=== PATIENT | female | born 1980 | race Caucasian/White ===

== ENCOUNTER 2023-02-08 21:19 | Inpatient (IN) | payer OTHER, SELFPAY ==
[2023-02-08 21:30] VITALS: BP 146/94; PULSE 96; RESP 18; TEMP 37.1; O2SAT 97; BMI 31.0
[2023-02-08 21:58] LABS: MANUAL DIFF FLAG NO
[2023-02-08 22:03] LABS: Basophils Percent Auto 0.3 % (0-2); Eosinophils Percent Auto 0.1 % (0-4); Hematocrit 38.5 % (37.0-47.0); Hemoglobin 13.4 g/dl (12.0-16.0); Imm Gran Abs Auto 0.02 X10*3/uL (0.00-0.03); Imm Gran Pct Auto 0.3 % (0.0-0.4); Lymphocytes Absolute Auto 1.1 X10*3/uL (1.2-4.9); Lymphocytes Percent Auto 15.1 % (20-40); Mean Corpuscular HGB Conc 34.8 g/dl (31.0-35.0); Mean Corpuscular Hemoglobin 30.3 pg (27.0-33.0); Mean Corpuscular Volume 87.1 fL (80.0-98.0); Mean Platelet Volume 9.4 fL (9.4-12.3); Monocytes Absolute Auto 0.5 X10*3/uL (0.1-1.2); Monocytes Percent Auto 6.3 % (2-11); Neutrophils Absolute Auto 5.7 x10*3/uL (2.0-8.3); Neutrophils Percent Auto 77.9 % (45-73); Platelet Count 261 X10*3/uL (160-400); Red Blood Count 4.42 X10*6/uL (4.20-5.50); Red Cell Distribution Width 13.1 % (11.0-16.0); White Blood Count 7.3 X10*3/uL (4.8-10.8)
[2023-02-08 22:03] LABS: Appearance Urine Clear; Color Urine Yellow; Glucose Urine UA Negative (Negative); Leukocyte Esterase Urine Negative (Negative); Nitrite Urine Negative (Negative); Specific Gravity - Urine <= 1.005 (1.005-1.025); Urine Blood Negative (Negative); Urine Ketones 15 mg/dL (Negative); Urine Pregnancy NEGATIVE (NEGATIVE); Urine Protein Negative (Neg-Trace)
[2023-02-08 22:04] LABS: UPreg QC Valid YES
[2023-02-08 22:11] LABS: Amphetamine Screen Urine Not Detected (Not Detect); Barbiturates, Urine Not Detected (Not Detect); Benzodiazepines Screen Urine Not Detected (Not Detect); Cannabinoid Screen Urine POSITIVE (Not Detect); Cocaine Screen Urine Not Detected (Not Detect); Fentanyl, urine Not Detected (Not Detect); IDNOW Serial# 9DB6401D; Opiate Screen Urine Not Detected (Not Detect); Phencyclidine Screen Urine Not Detected (Not Detect)
[2023-02-08 22:12] LABS: COVID-19 Test Negative (Negative)
--- NOTE | 2023-02-08 22:16 | PC.NURSE ---
pt reprots does not feel safe at home, please screen visitors and ask if patient if ok prior to bringing back to visit.
[2023-02-08 22:19] LABS: Alanine Aminotransferase 16 U/L (0-31); Albumin Level 4.4 g/dL (3.5-5.0); Alkaline Phosphatase 44 U/L (39-117); Anion Gap 15 (12-20); Aspartate Amino Transferase 22 U/L (5-31); Bilirubin Total 0.3 mg/dL (0.0-1.0); Blood Urea Nitrogen 11 mg/dL (9-16); Calcium 9.4 mg/dL (8.4-10.2); Carbon Dioxide 21 mmol/L (22-29); Chloride 106 mmol/L (96-108); Creatinine Clr Calc Pharmacy 92.7; Estimated Glomerular Filt Rate > 60; Ethanol < 10 mg/dL; Glucose Random 112 mg/dL (60-115); Potassium 3.4 mmol/L (3.3-5.1); Sodium 139 mmol/L (135-145); Total Protein 7.2 g/dL (6.5-8.0)
--- NOTE | 2023-02-08 22:24 | PC.NURSE ---
security searched and placed belonings in pod closet
--- NOTE | 2023-02-08 22:41 | ED_ITS ---
HPI - Psych General Chief Complaint: Psychiatric Symptoms Stated Complaint: stopped taking physch meds/suicidal thoughts Time Seen by Provider: 02/08/23 22:35 Source: patient Mode of arrival: ambulatory Limitations: no limitations History of Present Illness HPI Narrative: Patient comes to the emergency room stating that she believes she is having a psychotic breakdown. Patient states that she was doing very well in her psychiatric medications, took herself off 3 months ago because she was doing well. Today, the patient states that she was smoking marijuana, then she lost touch with reality , patient realized that she was having a psychotic breakdown. Patient states that she is sure that the marijuana that she was smoking was not laced with any other drugs. Patient denies suicidal or homicidal ideation. Patient looking for help before her psychiatric episode is worse, vague suicidal ideation no plan Related Data Allergies Allergy/AdvReac Type Severity Reaction Status Date / Time doxycycline Allergy Anaphylaxis Verified 02/08/23 21:38 Review of Systems 2 Review of Systems: Constitutional : No Weight loss, No Fever, No Chills, No Night Sweats, No Fatigue, No Malaise ENT/Mouth : No Hearing loss, No Ear Pain, No Nasal Congestion, No Sinus Pain, No Hoarseness, No sore throat, No Rhinorrhea, No Swallowing Difficulty Eyes: No Eye Pain, No Swelling, No Redness, No Foreign Body, No Discharge, No Vision Changes Cardiovascular : No Chest Pain, No SOB, No Dyspnea on Exertion, No Orthopnea, No Edema, No Palpitations Respiratory : No Cough, No Sputum, No Wheezing, No Smoke Exposure, No Dyspnea Gastrointestinal : No Nausea, No Vomiting, No Diarrhea, No Constipation, No abdominal Pain, No Hematochezia, No Melena Genitourinary : no irregular bleeding, No Dysuria, No Urinary Frequency, No Hematuria, No Urinary Incontinence, No Urgency, No Flank Pain, No Urinary Flow Changes, No Hesitancy Musculoskeletal : No joint pain, No Myalgias, No Joint Swelling Skin : No Skin Lesions, No rash Neuro : No Weakness, No Numbness, No Paresthesias, No Loss of Consciousness, No Dizziness, No Headache Psych : No Anxiety/Panic, vague suicidal ideation without plan, patient states that she feels that she is losing touch with reality Heme/Lymph: No Bruising, No Bleeding,No Lymphadenopathy Endocrine : No Polyuria, No Polydipsia, No Temperature Intolerance PMFSH Social History Social History Advance Directives: No Advance Directives Information Provided: No Patient : No Physical Exam 2 Vital Signs: Vital Signs: Last Vital Signs Temp 98.7 F 02/08/23 21:30 Pulse 96 02/08/23 21:30 Resp 18 02/08/23 21:30 BP 146/94 H 02/08/23 21:30 Pulse Ox 97 02/08/23 21:30 O2 Del Method Room Air 02/08/23 21:30 BMI result Body Mass Index 31.0 Const: Other: Appearance: Alert. Oriented X3. No acute distress. Eyes: Pupils equal, round and reactive to light. ENT: Pharynx normal. Neck: Normal inspection. Neck supple. No lymph nodes noted. No crepitus CVS: Normal heart rate and rhythm. Pulses normal. Normal S1 and S2 Respiratory: No respiratory distress. Breath sounds normal. No Wheezing. No rales Abdomen: Soft and nontender. No rigidity. No distention. Skin: Skin warm and dry. Normal skin color. Normal skin turgor. Extremities: No lower extremity edema. No Lacerations. No Rash Neuro: Oriented X 3. No motor deficit. No sensory deficit. Moving all extremities. No slurred speech. CN 2 through 12 grossly intact Psych: calm, cooperative, normal affect, coherent Medical Decision Making Medical Decision Making MDM Narrative: -my interpretation of labs: Normal hematology, normal chemistry, negative UTI, urine toxicology positive for marijuana, negative ETOH -patient having, states she is hearing voices to at this time. Patient given p.o. Haldol Benadryl and Ativan. Patient requested medications, this is not a medical restrain, patient agreeable to take them. -patient is here voluntarily, seeking help, not wanting to leave, sectioned to the indicated at this time -care team consult pending -physician observation started at 22:52 Differential Diagnosis Differential Diagnoses: The differential diagnosis associated with the presentation includes (Depression, polysubstance abuse, schizophrenia, psychosis) Admission/Observation Consideration of admission/observation: Escalation of care including admission/observation considered (Patient waiting to be seen by the care team to determine disposition, patient on physician observation) Lab Data [facility] Lab Attestation statement: I reviewed the patient's lab results. 02/08/23 21:51 02/08/23 21:50 Labs: Lab Results 02/08/23 02/08/23 Range/Units 21:50 21:51 WBC 7.3 (4.8-10.8) X10*3/uL RBC 4.42 (4.20-5.50) X10*6/uL Hgb 13.4 (12.0-16.0) g/dl Hct 38.5 (37.0-47.0) % MCV 87.1 (80.0-98.0) fL MCH 30.3 (27.0-33.0) pg MCHC 34.8 (31.0-35.0) g/dl RDW 13.1 (11.0-16.0) % Plt Count 261 (160-400) X10*3/uL MPV 9.4 (9.4-12.3) fL Immature Gran % (Auto) 0.3 (0.0-0.4) % Neut % (Auto) 77.9 H (45-73) % Lymph % (Auto) 15.1 L (20-40) % [place] % (Auto) 6.3 (2-11) % Eos % (Auto) 0.1 (0-4) % Baso % (Auto) 0.3 (0-2) % Lymph # (Auto) 1.1 L (1.2-4.9) X10*3/uL [place] # (Auto) 0.5 (0.1-1.2) X10*3/uL Eos # (Auto) 0.0 (0.0-0.4) X10*3/uL Baso # (Auto) 0.0 (0.0-0.2) X10*3/uL Abs Immat Gran (auto) 0.02 (0.00-0.03) X10*3/uL Absolute Neuts (auto) 5.7 (2.0-8.3) x10*3/uL Absolute Nucleated RBC 0.000 (0.0-0.012) X10*3/uL Nucleated RBC % (auto) 0.0 (0.0-0.2) /100WBC Sodium 139 (135-145) mmol/L Potassium 3.4 (3.3-5.1) mmol/L Chloride 106 (96-108) mmol/L Carbon Dioxide 21 L (22-29) mmol/L Anion Gap 15 (12-20) BUN 11 (9-16) mg/dL Creatinine 0.81 (0.5-1.4) mg/dL Estim Creat Clear Calc 92.7 Estimated GFR > 60 Random Glucose 112 (60-115) mg/dL Calcium 9.4 (8.4-10.2) mg/dL Total Bilirubin 0.3 (0.0-1.0) mg/dL AST 22 (5-31) U/L ALT 16 (0-31) U/L Alkaline Phosphatase 44 (39-117) U/L Total Protein 7.2 (6.5-8.0) g/dL Albumin 4.4 (3.5-5.0) g/dL Urine Color Yellow Urine Appearance Clear Urine pH 6.0 (5.0-9.0) Ur Specific [place] <= 1.005 (1.005-1.025) Urine Protein Negative (Neg-Trace) mg/dL Urine Glucose (UA) Negative (Negative) mg/dL Urine Ketones 15 (Negative) mg/dL Urine Blood Negative (Negative) Urine Nitrite Negative (Negative) Ur Leukocyte Esterase Negative (Negative) Urine Test NEGATIVE (NEGATIVE) Urine Opiates Screen Not Detected (Not Detect) Urine Fentanyl Screen Not Detected (Not Detect) Ur Barbiturates Screen Not Detected (Not Detect) Ur Phencyclidine Scrn Not Detected (Not Detect) Ur Amphetamines Screen Not Detected (Not Detect) U Benzodiazepines Scrn Not Detected (Not Detect) Urine Cocaine Screen Not Detected (Not Detect) U Marijuana (THC) Screen POSITIVE H (Not Detect) Ethyl Alcohol < 10 mg/dL COVID-19 (AGUSTIN) Negative (Negative) COVID-19 Clin Com See Note Discharge Plan Discharge Clinical Impression: Acute psychosis, Auditory hallucinations Patient Disposition: Still a Patient Interventions: [place]-Suicide Risk Severity Scale Last Done: 02/08/23 22:12
--- NOTE | 2023-02-08 22:45 | PC.NURSE ---
pt sts that she is feeling anxious/ hearing voices, requests medicateion, MD wright notified via [email or web address].
[2023-02-08] MEDS: HaloperidoL 5 MG TABLET PO (22:53)
[2023-02-08] MEDS: diphenhydrAMINE HCL 25 MG CAPSULE 50 MG PO (22:53)
[2023-02-08] MEDS: LORazepam 1 MG TABLET 2 MG PO (22:53)
--- NOTE | 2023-02-08 23:14 | PC.NURSE ---
med rec complete
[2023-02-09 06:13] VITALS: BP 119/67; PULSE 69; RESP 16; TEMP 37; O2SAT 95
[2023-02-09] MEDS: LORazepam 1 MG TABLET PO (13:57)
[2023-02-09] MEDS: Nicotine 14 MG PATCH.TD24 TRANSDERMA (17:05)
[2023-02-09 17:08] VITALS: RESP 16
--- NOTE | 2023-02-09 17:10 | PC.NURSE ---
Shannon moved from the main ED to the POD. Pleasant and cooperative. Req/Rec Nicotine patch. Currently resting in her room.
--- NOTE | 2023-02-09 19:38 | PC.NURSE ---
patient appears to remain at rest at present respirations are even and unlabored patient appears in no distress.
[2023-02-09 21:18] VITALS: BP 112/74; O2SAT 96
[2023-02-09] MEDS: Sertraline HCL 100 MG TABLET 150 MG PO (21:22)
[2023-02-09] MEDS: OLANZapine 10 MG TABLET PO (21:22)
[2023-02-09] MEDS: traZODone HCL 100 MG TABLET 200 MG PO (21:22)
[2023-02-09] MEDS: cloNIDine HCL 0.1 MG TABLET PO (21:24)
--- NOTE | 2023-02-09 21:29 | PHA.MEDREC ---
Pharmacy Consult ? Medication Reconciliation Pharmacy has reviewed the medication reconciliation completed by nursing. Patient on sertraline 150 mg instead of 100 mg. Vonda Be, MehdiD
--- NOTE | 2023-02-10 | ECG_ITS ---
Test Reason : qt interval Blood Pressure : / mmHG Vent. Rate : 074 BPM Atrial Rate : 074 BPM P-R Int : 172 ms QRS Dur : 076 ms QT Int : 394 ms P-R-T Axes : 057 -07 010 degrees QTc Int : 437 ms Normal sinus rhythm Normal ECG No previous ECGs available Referred By: Sherlyn Mishra Electronically Signed By:ROBERT MCNEIL MD
[2023-02-10 08:21] LABS: COVID-19 Test Negative (Negative); IDNOW Serial# 08D9AD1C
[2023-02-10 09:24] VITALS: BP 111/64; PULSE 54; TEMP 36.8; O2SAT 97
--- NOTE | 2023-02-10 11:13 | PC.NURSE ---
pt given clean clothes, took shower. alert, calm, cooperative.
--- NOTE | 2023-02-10 11:28 | PC.NURSE ---
pt tearful, requesting nicotine replacement and something for anxiety. crying. sad. no si. md giang informed.
[2023-02-10] MEDS: Nicotine 21 MG PATCH.TD24 TRANSDERMA (11:49)
[2023-02-10] MEDS: LORazepam 1 MG TABLET PO (11:49)
--- NOTE | 2023-02-10 11:52 | PC.NURSE ---
given nicotine patch and ativan also for anxiety per request.
--- NOTE | 2023-02-10 12:00 | PC.NURSE ---
pt was anxious/tearful/sad and asked for ativan/nicotine patch. spoke w md giang. ordered. given and pt resting in room
--- NOTE | 2023-02-10 13:04 | PC.NURSE ---
report given to fracisco on phone. will call back when orders are final and pt can go up
--- NOTE | 2023-02-10 14:20 | PC.NURSE ---
resting in room. ate lunch. no distress
[2023-02-10 15:01] VITALS: BP 111/73; PULSE 82; RESP 18; TEMP 37.1; O2SAT 97
--- NOTE | 2023-02-10 15:09 | PC.NURSE ---
sent upstairs by lianna weathers.
[2023-02-10] MEDS: hydrOXYzine HCL 25 MG TABLET PO ×2 (15:49→20:54)
[2023-02-10 18:00] VITALS: BP 116/78; PULSE 78; RESP 17; TEMP 36.7; O2SAT 98
[2023-02-10 19:02] VITALS: BMI 30.3
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
[2023-02-10] MEDS: cloNIDine HCL 0.1 MG TABLET PO (20:55)
[2023-02-10] MEDS: traZODone HCL 100 MG TABLET 200 MG PO (20:55)
[2023-02-10] MEDS: OLANZapine 10 MG TABLET PO (20:55)
[2023-02-11] MEDS: hydrOXYzine HCL 25 MG TABLET PO ×2 (09:28→20:41)
[2023-02-11] MEDS: Nicotine 21 MG PATCH.TD24 TRANSDERMA (09:29)
[2023-02-11 10:03] VITALS: BP 100/58; PULSE 85; RESP 18; TEMP 36.9; O2SAT 96
[2023-02-11 10:13] LABS: Estimated Average Glucose 85 mg/dL; Hemoglobin A1c % 4.6 % (<6.0)
[2023-02-11 10:22] LABS: Cholesterol 148 mg/dL (<200); HDL Cholesterol 45 mg/dL (>40); LDL Cholesterol Calculated 81 mg/dL (<100); Triglycerides 111 mg/dL (<150)
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
[2023-02-11] MEDS: Nicotine Polacrilex 2 MG GUM 4 MG BUCCAL (14:21)
[2023-02-11] MEDS: OLANZapine 5 MG TABLET PO ×2 (14:21→18:55)
[2023-02-11 18:00] VITALS: BP 126/58; PULSE 68; RESP 16; TEMP 37; O2SAT 98
--- NOTE | 2023-02-11 18:21 | P.CONHOSP_ITS ---
History of Present Illness Data of Consult Service Date: 02/11/23 Requesting physician: Nette Myles Primary Care Provider: Camron Parikh MD HPI Reason for consult: nasal congestion, scabbing 42-year-old female without any significant past medical history admitted to Psychiatry with consult placed to hospitalist service for evaluation of nasal congestion/edema/scabbing ongoing for about 1 week. The patient denies any inhaled drug use but states every time she blows her nose there is bloody drainage. No overt epistaxis. She states her right nostril feels swollen and blocked. There is mild tenderness/pressure over the right maxillary and frontal sinus. No fevers. No sore throat, cough, sob Review of Systems 2 Review of Systems: Yes all other systems are reviewed and are negative [facility] Medical History No pertinent past medical history Social History Household Members: Unknown / Unable to assess Housing: Apartment Do you presently have visiting nurse or other home services: No Patient Tobacco Use Status: Current everyday Tobacco user Smoked in Last 30 Days: Yes e-Cigarette/Vaping Use: Currently Using Frequency of e-Cigarette/Vaping Use: A lot Patient Interested in Nicotine Replacement: Yes Second Hand Smoke Exposure: No Use of substances other than those prescribed or required for medical reasons: Yes Substance Use Type: Marijuana Substance Use Frequency: Occasionally Last Used Substance: Days (ago) Currently Displaying Signs/Symptoms of Drug Intoxication Withdrawal: No Any prior treatment program specific to substance use: No Have you been hit, kicked, punched, or otherwise hurt by someone within the past year? If so, by whom?: No Do you feel safe in your current relationship?: No Is there a partner from a previous relationship who is making you feel unsafe now?: No Are you made to feel afraid or neglected: No Spiritual Healthcare Practices: None Reported Advance Directives: No Advance Directives Information Provided: No Healthcare Proxy: No Guardian: No Do you have thoughts of harming others: None Do you have a plan to hurt others: No Plan Recently lost weight without trying: No How much weight loss: Not applicable Eating poorly because of decreased appetite: No Nutrition screen score: 0 Nutrition Risks: No Nutritional Risk Patient : No : No Poor oral hygiene: No Meds Allergies Allergy/AdvReac Type Severity Reaction Status Date / Time doxycycline Allergy Anaphylaxis Verified 02/08/23 21:38 Active Medications: Current Medications Acetaminophen (Acetaminophen 325 Mg Tablet) 650 mg PO Q6H PRN PRN Reason: Headache/Pain Mild Scale (1-3) Al Hydroxide/Mg Hydroxide (Magnesium Hydrox/Alum Hydrox 30 Ml Oral.Susp) 30 ml PO Q6H PRN PRN Reason: Heartburn/Nausea Amphetamine/Dextroamphetamine (Amphetamine Mixed Salts 20 Mg Tablet) 20 mg PO DAILY@0900,1400 TOMEKA Bisacodyl (Bisacodyl 5 Mg Tablet.Dr) 10 mg PO DAILY PRN PRN Reason: Constipation Docusate Sodium (Docusate Sodium 100 Mg Capsule) 100 mg PO BID TOMEKA Hydroxyzine HCl (Hydroxyzine Hcl 25 Mg Tablet) 25 mg PO Q6H PRN PRN Reason: Anxiety Last Admin: 02/11/23 09:28 Dose: 25 mg Magnesium Hydroxide (Milk Of Magnesia 30 Ml Oral.Susp) 30 ml PO DAILY PRN PRN Reason: Constipation Nicotine (Nicotine 21 Mg Patch.Td24) 21 mg TRANSDERMA DAILY PRN PRN Reason: smoking cessation Last Admin: 02/11/23 09:29 Dose: 21 mg Nicotine Polacrilex (Nicotine Polacrilex 2 Mg Gum) 4 mg BUCCAL Q2H PRN PRN Reason: Nicotine Cravings Last Admin: 02/11/23 14:21 Dose: 4 mg Olanzapine (Olanzapine 10 Mg Tablet) 10 mg PO BEDTIME TOMEKA Last Admin: 02/10/23 20:55 Dose: 10 mg Olanzapine (Olanzapine 5 Mg Tablet) 5 mg PO TID PRN PRN Reason: agitation Last Admin: 02/11/23 14:21 Dose: 5 mg Polyethylene Glycol (Polyethylene Glycol 3350 17 Gm Powd.Pack) 17 gm PO DAILY PRN PRN Reason: Constipation Prazosin HCl (Prazosin Hcl 1 Mg Capsule) 1 mg PO BEDTIME TOMEKA; Protocol Sertraline HCl (Sertraline Hcl 50 Mg Tablet) 50 mg PO BEDTIME TOMEKA Trazodone HCl (Trazodone Hcl 100 Mg Tablet) 200 mg PO BEDTIME PRN PRN Reason: Insomnia Last Admin: 02/10/23 20:55 Dose: 200 mg Trazodone HCl (Trazodone Hcl 50 Mg Tablet) 50 mg PO BEDTIME MRX1 PRN PRN Reason: Insomnia Home Medications Medication Instructions Recorded Confirmed Last Taken Type clonidine HCl 0.1 mg tablet 0.1 mg PO BEDTIME 02/08/23 02/09/23 Unknown History olanzapine 10 mg tablet 10 mg PO BEDTIME 02/08/23 02/08/23 Unknown History sertraline 100 mg tablet (Zoloft) 150 mg PO BEDTIME 02/08/23 02/09/23 Unknown History trazodone 100 mg tablet 200 mg PO BEDTIME PRN Insomnia 02/08/23 02/08/23 Unknown History Physical Exam 2 Vital Signs and Narrative: Vital Signs: Last Vital Signs Temp 98.5 F 02/11/23 10:03 Pulse 85 02/11/23 10:03 Resp 18 02/11/23 10:03 BP 100/58 L 02/11/23 10:03 Pulse Ox 96 02/11/23 10:03 O2 Del Method Room Air 02/11/23 10:03 BMI result Body Mass Index 30.3 Constitutional - Awake and Alert, No apparent distress Eyes - PERRLA, EOMI Nose - Nares patent, mucosa pale/dry. Slight scabbing over kiesselbach plexus. No significant ttp over maxillary or frontal sinus Cardiovascular - S1S2, No edema Respiratory - Normal lung expansion, Normal respiratory effort, No respiratory distress Skin - Warm/Dry Neurological - Alert & oriented x3 Psychological - Appropriate affect Results Labs 02/08/23 21:51 02/08/23 21:50 Labs: Laboratory Results - last 24 hr 02/11/23 09:15 Estimat Average Glucose 85 Hemoglobin A1c % 4.6 Triglycerides 111 Cholesterol 148 LDL Cholesterol, Calc 81 HDL Cholesterol 45 Assessment and Plan (1) Nasal congestion: Status: Acute Plan 42-year-old female without any significant past medical history admitted to Psychiatry with consult placed to hospitalist service for evaluation of nasal congestion/edema/scabbing ongoing for about 1 week. Pt with nasal congestion/nasal dryness likely secondary to low humidity which is causes slight bleeding when blowing her nose. Recommend using flonase only once daily to help with any edema/congestion but recommended frequent use of saline nasal spray. She can use claritin prn. Can use petroleum jelly for dryness if needed. No antibiotics or further intervention indicated at this time. Thank you for allowing me to participate in this consult. Signing off at this time. Please do not hesitate to call for further questions or for any acute medical issues.
[2023-02-11] MEDS: Fluticasone Propionate Nasal 16 GM SPRAY 1 SPRAY NOSTRIL-B (18:55)
[2023-02-11] MEDS: Sodium Chloride 0.65 % Nasal 44 ML SPRBTL 1 SPRAY NOSTRIL-B (18:55)
[2023-02-11] MEDS: OLANZapine 10 MG TABLET PO (20:41)
[2023-02-11] MEDS: Prazosin HCL 1 MG CAPSULE PO (20:41)
[2023-02-11] MEDS: Docusate Sodium 100 MG CAPSULE PO (20:41)
[2023-02-11] MEDS: traZODone HCL 100 MG TABLET 200 MG PO (20:44)
[2023-02-12 07:00] VITALS: BMI 30.6
[2023-02-12] MEDS: Amphetamine Mixed Salts 20 MG TABLET PO ×2 (08:44→14:28)
[2023-02-12] MEDS: Docusate Sodium 100 MG CAPSULE PO ×2 (08:44→21:33)
[2023-02-12] MEDS: Fluticasone Propionate Nasal 16 GM SPRAY 1 SPRAY NOSTRIL-B (08:44)
[2023-02-12] MEDS: OLANZapine 5 MG TABLET PO ×2 (08:47→20:18)
[2023-02-12] MEDS: Nicotine 21 MG PATCH.TD24 TRANSDERMA (08:47)
[2023-02-12] MEDS: Sodium Chloride 0.65 % Nasal 44 ML SPRBTL 1 SPRAY NOSTRIL-B ×2 (08:47→14:28)
[2023-02-12 09:30] VITALS: BP 137/75; PULSE 72; RESP 16; TEMP 36.9; O2SAT 97
--- NOTE | 2023-02-12 15:07 | HO.PSYCHPN ---
Subjective Subjective Date of Service: 02/12/23 Reason For Visit: Psychosis Interim History: Tolerating medication retitration. Planning discharge 02/13. Denies SI, HI, AH, VH Medication Compliance: Yes Review of Systems Medical Review of Systems: unchanged Review of Systems Review of Systems Yes all other systems are reviewed and are negative Mental Status Exam Mental Status Exam Patient Appearance: Appropriate Patient Orientation: Person, Place, Time and Situation Level of Consciousness: Alert Patient Behavior: Appropriate, Talkative and Good Eye Contact Mood Description: Depressed Affect Description: Flat Patient Cognition Impaired: No Ability to Follow Directions: Good Speech Pattern: Spontaneous Speech Memory Description: Intact Hallucinations: None Delusions: Not Present Perceptual Disturbances: Depersonalization and Derealization Thought Process: Intact and Goal Oriented Thought Content: positive for Intact and positive for Goal Oriented Depressive Symptoms: Low Self Esteem Judgement: Good Diagnostics Vital Signs (24Hr): Vital Signs - 24 hr 02/11/23 18:00 02/12/23 09:30 Temperature 98.6 F 98.4 F Pulse Rate 68 72 Respiratory Rate 16 16 Blood Pressure 126/58 L 137/75 Pulse Oximetry 98 97 Oxygen Delivery Method Room Air Room Air BMI result Body Mass Index 30.6 Labs 02/08/23 21:51 02/08/23 21:50 Labs: Laboratory Results - last 48 hr 02/11/23 09:15 Estimat Average Glucose 85 Hemoglobin A1c % 4.6 Triglycerides 111 Cholesterol 148 LDL Cholesterol, Calc 81 HDL Cholesterol 45 Medications Medications Current Medications Acetaminophen (Acetaminophen 325 Mg Tablet) 650 mg PO Q6H PRN PRN Reason: Headache/Pain Mild Scale (1-3) Al Hydroxide/Mg Hydroxide (Magnesium Hydrox/Alum Hydrox 30 Ml Oral.Susp) 30 ml PO Q6H PRN PRN Reason: Heartburn/Nausea Amphetamine/Dextroamphetamine (Amphetamine Mixed Salts 20 Mg Tablet) 20 mg PO DAILY@0900,1400 [facility] Last Admin: 02/12/23 14:28 Dose: 20 mg Bisacodyl (Bisacodyl 5 Mg Tablet.Dr) 10 mg PO DAILY PRN PRN Reason: Constipation Docusate Sodium (Docusate Sodium 100 Mg Capsule) 100 mg PO BID [facility] Last Admin: 02/12/23 08:44 Dose: 100 mg Fluticasone Propionate (Fluticasone Propionate Nasal 16 Gm [place]) 1 spray NOSTRIL-B DAILY [facility] Last Admin: 02/12/23 08:44 Dose: 1 spray Hydroxyzine HCl (Hydroxyzine Hcl 25 Mg Tablet) 25 mg PO Q6H PRN PRN Reason: Anxiety Last Admin: 02/11/23 20:41 Dose: 25 mg Loratadine (Loratadine 10 Mg Tablet) 10 mg PO DAILY PRN PRN Reason: congestion Magnesium Hydroxide (Milk Of Magnesia 30 Ml Oral.Susp) 30 ml PO DAILY PRN PRN Reason: Constipation Nicotine (Nicotine 21 Mg Patch.Td24) 21 mg TRANSDERMA DAILY PRN PRN Reason: smoking cessation Last Admin: 02/12/23 08:47 Dose: 21 mg Nicotine Polacrilex (Nicotine Polacrilex 2 Mg Gum) 4 mg BUCCAL Q2H PRN PRN Reason: Nicotine Cravings Last Admin: 02/11/23 14:21 Dose: 4 mg Olanzapine (Olanzapine 10 Mg Tablet) 10 mg PO BEDTIME [facility] Last Admin: 02/11/23 20:41 Dose: 10 mg Olanzapine (Olanzapine 5 Mg Tablet) 5 mg PO TID PRN PRN Reason: agitation Last Admin: 02/12/23 08:47 Dose: 5 mg Polyethylene Glycol (Polyethylene Glycol 3350 17 Gm Powd.Pack) 17 gm PO DAILY PRN PRN Reason: Constipation Prazosin HCl (Prazosin Hcl 1 Mg Capsule) 1 mg PO BEDTIME [place]OME[place]; Protocol Last Admin: 02/11/23 20:41 Dose: 1 mg Sertraline HCl (Sertraline Hcl 50 Mg Tablet) 50 mg PO BEDTIME [place] Sodium Chloride (Sodium Chloride 0.65 % Nasal 44 Ml Sprbtl) 1 spray NOSTRIL-B Q1H PRN PRN Reason: congestion/nose bleeds Last Admin: 02/12/23 14:28 Dose: 1 spray Trazodone HCl (Trazodone Hcl 100 Mg Tablet) 200 mg PO BEDTIME PRN PRN Reason: Insomnia Last Admin: 02/11/23 20:44 Dose: 200 mg Trazodone HCl (Trazodone Hcl 50 Mg Tablet) 50 mg PO BEDTIME MRX1 PRN PRN Reason: Insomnia Allergies Allergies Allergy/AdvReac Type Severity Reaction Status Date / Time doxycycline Allergy Anaphylaxis Verified 02/08/23 21:38 Assessment & Plan Assessment & Plan (1) Nasal congestion: Status: Resolved Code(s): R09.81 - Nasal congestion (2) Recurrent major depression: Status: Acute Code(s): F33.9 - Major depressive disorder, recurrent, unspecified Assessment and Plan: 02/12/23- Medications re-established without adverse response. Planning discharge for 02/13/23. (3) PTSD (post-traumatic stress disorder): Status: Acute Code(s): F43.10 - Post-traumatic stress disorder, unspecified Plan 42-year-old female without any significant past medical history admitted to Psychiatry with consult placed to hospitalist service for evaluation of nasal congestion/edema/scabbing ongoing for about 1 week. Pt with nasal congestion/nasal dryness likely secondary to low humidity which is causes slight bleeding when blowing her nose. Recommend using flonase only once daily to help with any edema/congestion but recommended frequent use of saline nasal spray. She can use claritin prn. Can use petroleum jelly for dryness if needed. No antibiotics or further intervention indicated at this time. Thank you for allowing me to participate in this consult. Signing off at this time. Please do not hesitate to call for further questions or for any acute medical issues. Informed Consent: understands Reason for continued inpatient stay Substantial Risk for: rapid decompensation Time Spent With Patient Time: Total time managing care of this patient today ____ minutes.
[2023-02-12 18:00] VITALS: BP 139/85; PULSE 90; RESP 18; TEMP 36.8; O2SAT 100
[2023-02-12] MEDS: Nicotine Polacrilex 2 MG GUM 4 MG BUCCAL (20:18)
[2023-02-12] MEDS: Prazosin HCL 1 MG CAPSULE PO (21:33)
[2023-02-12] MEDS: OLANZapine 10 MG TABLET PO (21:33)
[2023-02-12] MEDS: traZODone HCL 100 MG TABLET 200 MG PO (21:34)
[2023-02-12] MEDS: Sertraline HCL 50 MG TABLET PO (21:34)
[2023-02-12] MEDS: hydrOXYzine HCL 25 MG TABLET PO (21:35)
[2023-02-13] MEDS: Nicotine 21 MG PATCH.TD24 TRANSDERMA (08:20)
[2023-02-13] MEDS: Sodium Chloride 0.65 % Nasal 44 ML SPRBTL 1 SPRAY NOSTRIL-B (08:20)
[2023-02-13] MEDS: Fluticasone Propionate Nasal 16 GM SPRAY 1 SPRAY NOSTRIL-B (08:20)
[2023-02-13] MEDS: Docusate Sodium 100 MG CAPSULE PO (08:20)
[2023-02-13] MEDS: Amphetamine Mixed Salts 20 MG TABLET PO (08:25)
[2023-02-13 08:35] VITALS: BP 132/78; PULSE 101; RESP 18; TEMP 37.2; O2SAT 97
[2023-02-13] MEDS: OLANZapine 5 MG TABLET PO (09:27)
--- NOTE | 2023-02-13 10:25 | P.DS_ITS ---
DS: Providers Provider Date of Service: 02/13/23 Date of admission: 02/10/23 14:28 Date of discharge: 02/13/23 Primary care physician: Camron Parikh MD Admitting clinician: Nette Myles Attending physician on admission: Gagandeep Hernandez Consults: 02/11/23 15:09 Consult to Hospitalist Routine Comment: hx of nasal staph infections Consulting Provider: Hospitalist Reason For Exam: Right side nasal pain, edema, scabbing, worsening Attending physician on discharge: Gagandeep Hernandez Discharging clinician: Nette Myles DS: Diagnosis Discharge Diagnosis (1) PTSD (post-traumatic stress disorder): Status: Acute (2) Recurrent major depression: Status: Acute DS: Medications Discharge Medications Home Medications: Previous Rx's Medication Instructions Recorded bisacodyl 5 mg tablet,delayed 10 mg (2 x 5 mg) PO DAILY PRN 02/12/23 release Constipation #15 tabs dextroamphetamine-amphetamine 20 20 mg PO DAILY@0900,1400 #60 tabs 02/12/23 mg tablet docusate sodium 100 mg capsule 100 mg PO BID #60 caps 02/12/23 fluticasone propionate 50 1 spray intranasal DAILY #1 inhaler 02/12/23 mcg/actuation nasal spray,suspension hydroxyzine HCl 25 mg tablet 25 mg PO Q6H PRN Anxiety #90 tabs 02/12/23 loratadine 10 mg tablet 10 mg PO DAILY PRN congestion #30 02/12/23 tabs nicotine (polacrilex) 2 mg gum 4 mg buccal Q2H PRN Nicotine 02/12/23 Cravings #60 ea nicotine 21 mg/24 hr daily 21 mg transdermal DAILY PRN 02/12/23 transdermal patch smoking cessation #30 ea olanzapine 10 mg tablet 10 mg PO BEDTIME #30 tabs 02/12/23 olanzapine 5 mg tablet 5 mg PO TID PRN agitation #30 tabs 02/12/23 polyethylene glycol 3350 17 gram 17 g PO DAILY PRN Constipation #1 02/12/23 oral powder packet units prazosin 1 mg capsule 1 mg PO BEDTIME #15 caps 02/12/23 sertraline 50 mg tablet 50 mg PO BEDTIME #30 tabs 02/12/23 sodium chloride 0.65 % nasal spray 1 spray intranasal Q1H PRN 02/12/23 aerosol ([place] Nasal) congestion/nose bleeds #1 inhaler trazodone 100 mg tablet 200 mg (2 x 100 mg) PO BEDTIME PRN 02/12/23 Insomnia #60 tabs Mental Status Exam Mental Status Exam Patient Appearance: Appropriate Patient Orientation: Person, Place, Time and Situation Level of Consciousness: Alert Patient Behavior: Appropriate, Talkative and Good Eye Contact Mood Description: Depressed Affect Description: Flat Patient Cognition Impaired: No Ability to Follow Directions: Good Speech Pattern: Spontaneous Speech Memory Description: Intact Hallucinations: None Delusions: Not Present Perceptual Disturbances: Depersonalization and Derealization Thought Process: Intact and Goal Oriented Thought Content: positive for Intact and positive for Goal Oriented Depressive Symptoms: Low Self Esteem Judgement: Good Data Data Completed and Pending Completed studies during hospitalization [Text1]: 02/08/23 02/08/23 02/10/23 21:50 21:51 07:56 WBC 7.3 RBC 4.42 Hgb 13.4 Hct 38.5 MCV 87.1 MCH 30.3 MCHC 34.8 RDW 13.1 Plt Count 261 MPV 9.4 Immature Gran % (Auto) 0.3 Neut % (Auto) 77.9 H Lymph % (Auto) 15.1 L [place] % (Auto) 6.3 Eos % (Auto) 0.1 Baso % (Auto) 0.3 Lymph # (Auto) 1.1 L [place] # (Auto) 0.5 Eos # (Auto) 0.0 Baso # (Auto) 0.0 Abs Immat Gran (auto) 0.02 Absolute Neuts (auto) 5.7 Absolute Nucleated RBC 0.000 Nucleated RBC % (auto) 0.0 Sodium 139 Potassium 3.4 Chloride 106 Carbon Dioxide 21 L Anion Gap 15 BUN 11 Creatinine 0.81 Estim Creat Clear Calc 92.7 Estimated GFR > 60 Random Glucose 112 Estimat Average Glucose Hemoglobin A1c % Calcium 9.4 Total Bilirubin 0.3 AST 22 ALT 16 Alkaline Phosphatase 44 Total Protein 7.2 Albumin 4.4 Triglycerides Cholesterol LDL Cholesterol, Calc HDL Cholesterol Urine Color Yellow Urine Appearance Clear Urine pH 6.0 Ur Specific [place] <= 1.005 Urine Protein Negative Urine Glucose (UA) Negative Urine Ketones 15 Urine Blood Negative Urine Nitrite Negative Ur Leukocyte Esterase Negative Urine Test NEGATIVE Urine Opiates Screen Not Detected Urine Fentanyl Screen Not Detected Ur Barbiturates Screen Not Detected Ur Phencyclidine Scrn Not Detected Ur Amphetamines Screen Not Detected U Benzodiazepines Scrn Not Detected Urine Cocaine Screen Not Detected U Marijuana (THC) Screen POSITIVE H Ethyl Alcohol < 10 COVID-19 ([facility]) Negative Negative COVID-19 Clin Com See Note See Note 02/11/23 09:15 WBC RBC Hgb Hct MCV MCH MCHC RDW Plt Count MPV Immature Gran % (Auto) Neut % (Auto) Lymph % (Auto) [place] % (Auto) Eos % (Auto) Baso % (Auto) Lymph # (Auto) [place] # (Auto) Eos # (Auto) Baso # (Auto) Abs Immat Gran (auto) Absolute Neuts (auto) Absolute Nucleated RBC Nucleated RBC % (auto) Sodium Potassium Chloride Carbon Dioxide Anion Gap BUN Creatinine Estim Creat Clear Calc Estimated GFR Random Glucose Estimat Average Glucose 85 Hemoglobin A1c % 4.6 Calcium Total Bilirubin AST ALT Alkaline Phosphatase Total Protein Albumin Triglycerides 111 Cholesterol 148 LDL Cholesterol, Calc 81 HDL Cholesterol 45 Urine Color Urine Appearance Urine pH Ur Specific [place] Urine Protein Urine Glucose (UA) Urine Ketones Urine Blood Urine Nitrite Ur Leukocyte Esterase Urine Test Urine Opiates Screen Urine Fentanyl Screen Ur Barbiturates Screen Ur Phencyclidine Scrn Ur Amphetamines Screen U Benzodiazepines Scrn Urine Cocaine Screen U Marijuana (THC) Screen Ethyl Alcohol COVID-19 ([facility]) COVID-19 Clin Com DS: Summary Hospital Course Hospital Course: Admission to adult psychiatry for exacerbation of PTSD, Recurrent Major Depression with recent SI and psychotic sx possibly related to the use of cannabis. Pt reported stopping medication regime a few months ago as she felt well and felt she was no longer in need of medications. She found that intermittent cannabis use exacerbated sx along with the stress of life changes. Regime was evaluated and re-started. Pt will return to [facility] of out pt care, [facility] [place] [facility], [facility] and [facility] for group options. She experienced no adverse effects in re- starting regime. Status at Discharge Functional status at discharge: independent ambulation Overall status at discharge: patient is progressing back to baseline Time Spent with Patient Time attestation: Total time managing care of this patient today ____ minutes. Time spent: Greater than 30 minutes Discharge Plan Discharge Anticipated Discharge Date/Time: 02/13/23 12:00 Patient Disposition: Home, Self-Care Discharge Diagnosis: PTSD Recurrent Major Depression Referrals: [facility] ([facility]): Ruth Sanchez [Other] - 01/11/24 9:00 am (Hospital Discharge appointment with psychiatric medication provider. Appointment is by tele-health) [facility]: partial hospitalization program(PHP) [Other] - 1 Week (Information for PHP program Patient may self -refer should she consider attending PHP) [facility] ([facility]): Iris Sierra [Other] - 02/27/23 12:00 pm (Hospital Discharge appointment with therapist Appointment is in person at [facility]) [facility]: (MRC) [Other] - 1 Week (Patient referred to [facility] Patient should follow up with them regarding referral after discharge ) [facility]: Complex PTSD Support Group Information [Other] - 1 Week (Patient provided with peer and online support information for Complex PTSD ) Camron Parikh MD [Primary Care Provider] - (Will call you directly to schedule follow up) Discharge Medications: New polyethylene glycol 3350 17 gram Powder In Packet 17 g PO DAILY PRN (Reason: Constipation) Qty: 1 0RF nicotine (polacrilex) 2 mg Gum 4 mg buccal Q2H PRN (Reason: Nicotine Cravings) Qty: 60 0RF prazosin 1 mg Capsule 1 mg PO BEDTIME Qty: 15 1RF Protocol: Hold for SBP< HOLD for SBP < : 90 olanzapine 5 mg Tablet 5 mg PO TID PRN (Reason: agitation) Qty: 30 0RF dextroamphetamine-amphetamine 20 mg Tablet 20 mg PO DAILY@0900,1400 Qty: 60 0RF Rx Instructions: Partial Fill upon patient request. nicotine 21 mg/24 hr Patch 24 Hour 21 mg transdermal DAILY PRN (Reason: smoking cessation) Qty: 30 0RF docusate sodium 100 mg Capsule 100 mg PO BID Qty: 60 0RF hydroxyzine HCl 25 mg Tablet 25 mg PO Q6H PRN (Reason: Anxiety) Qty: 90 0RF bisacodyl 5 mg Tablet,Delayed Release (Dr/Ec) 10 mg PO DAILY PRN (Reason: Constipation) Qty: 15 0RF fluticasone propionate 50 mcg/actuation [place],Suspension 1 spray intranasal DAILY Qty: 1 0RF sertraline 50 mg Tablet 50 mg PO BEDTIME Qty: 30 0RF loratadine 10 mg Tablet 10 mg PO DAILY PRN (Reason: congestion) Qty: 30 0RF Deep Sea Nasal 0.65 % Aerosol,[place] 1 spray intranasal Q1H PRN (Reason: congestion/nose bleeds) Qty: 1 0RF Continued olanzapine 10 mg tablet 10 mg PO BEDTIME Qty: 30 0RF trazodone 100 mg tablet 200 mg PO BEDTIME PRN (Reason: Insomnia) Qty: 60 0RF Discontinued clonidine HCl 0.1 mg tablet 0.1 mg PO BEDTIME sertraline [Zoloft] 100 mg Tablet 150 mg PO BEDTIME Discharge Orders: Discharge Order (Routine); Ordered 02/13/23 Ordered By: Nette Myles Diet: Advance to usual diet Activity on Discharge: As tolerated Stand Alone Forms: Patient Portal Discharge page, Community Support Care Plan Goals: Mood and Behavioral Stabilization Health Concerns: Mood and Behavioral Stabilization Plan of Treatment: On 02/18/23 increase Sertraline to 100 mg daily. On 02/25/23 increase Sertraline to 150 mg daily Attend scheduled appointments Take medications as directed Call and or return as needed. Assessment: Scheduled discharge to return home to partner and out patient care Discharge Date/Time: 02/13/23 10:31
[2023-02-13] MEDS: Nicotine Polacrilex 2 MG GUM 4 MG BUCCAL (10:29)
== END 2023-02-13 10:31 | disposition home or self-care (01) | DRG 751 ==
LOC: HO.ED 02-10 13:44 → HO.PM5 02-10 14:40
PROVIDERS: Admitting Provider Psychiatry & Neurology Psychiatry; Emergency Provider Emergency Medicine; PCP Internal Medicine; Visit Provider Clinical Nurse Specialist Psychiatric/Mental Health, Adult
DX: F33.9 Major depressive disorder, recurrent, unspecified (principal); R45.851 Suicidal ideations; Z91.128 Patient's intentional underdosing of medication regimen for other reason; F17.210 Nicotine dependence, cigarettes, uncomplicated; F43.10 Post-traumatic stress disorder, unspecified; Z71.6 Tobacco abuse counseling; R09.81 Nasal congestion; Z62.810 Personal history of physical and sexual abuse in childhood; Z20.822 Contact with and (suspected) exposure to COVID-19; Z79.899 Other long term (current) drug therapy
CPT/HCPCS: 36415; 80053; 80061; 80307; 81003; 81025; 83036; 85025; 87635; 93005; 99285; S9485

== ENCOUNTER → 2023-02-10 10:14 | Outpatient (BNV) | payer OTHER, SELFPAY | PROVIDERS: Emergency Provider Emergency Medicine; PCP Internal Medicine; Visit Provider Internal Medicine Cardiovascular Disease | DX: I45.81 Long QT syndrome (principal) | CPT/HCPCS: 93010 ==

== ENCOUNTER → 2023-02-10 14:28 | Outpatient (BNV) | payer OTHER, SELFPAY | PROVIDERS: Admitting Provider Psychiatry & Neurology Psychiatry; Emergency Provider Emergency Medicine; PCP Internal Medicine; Visit Provider Physician Assistant | DX: R09.81 Nasal congestion (principal) | CPT/HCPCS: 99221 ==

== ENCOUNTER → 2023-02-10 14:28 | Outpatient (BNV) | payer OTHER, SELFPAY | PROVIDERS: Admitting Provider Psychiatry & Neurology Psychiatry; Emergency Provider Emergency Medicine; PCP Internal Medicine; Visit Provider Clinical Nurse Specialist Psychiatric/Mental Health, Adult | DX: F33.2 Major depressive disorder, recurrent severe without psychotic features (principal); F43.11 Post-traumatic stress disorder, acute | CPT/HCPCS: 90792; 99232; 99238 ==